=== PATIENT | male | born 1985 | race African-American/Black ===

== ENCOUNTER 2016-06-05 20:17 | Emergency (ER) | payer SELFPAY ==
[2016-06-05] MEDS ORDERED: Ketorolac Tromethamine 60 MG/2 ML VIAL ONE (20:36)
[2016-06-05] MEDS ORDERED: Acetaminophen/Codeine 30-300mg Tablet ONE (20:37)
== END 2016-06-05 21:00 | disposition home or self-care (01) ==
LOC: NAV ERS 20:17
DX: K08.89 Other specified disorders of teeth and supporting structures (principal)
CPT/HCPCS: 96372; J1885

== ENCOUNTER 2016-08-06 20:59 | Emergency (ER) | payer SELFPAY | END 2016-08-06 22:05 | disposition short-term general hospital (02) | LOC: NAV ERS 20:59 | DX: R60.0 Localized edema (principal); M79.662 Pain in left lower leg; F17.210 Nicotine dependence, cigarettes, uncomplicated; I10 Essential (primary) hypertension | CPT/HCPCS: 99284 ==

== ENCOUNTER 2016-08-28 14:23 | Emergency (ER) | payer SELFPAY | END 2016-08-28 15:52 | disposition home or self-care (01) | LOC: NAV ERS 14:23 | DX: Z04.1 Encounter for examination and observation following transport accident (principal); E11.9 Type 2 diabetes mellitus without complications; I10 Essential (primary) hypertension; F17.210 Nicotine dependence, cigarettes, uncomplicated; Z79.899 Other long term (current) drug therapy; V89.2XXA Person injured in unspecified motor-vehicle accident, traffic, initial encounter | CPT/HCPCS: 99284 ==